=== PATIENT | male | born 1990 | race Caucasian/White ===

== ENCOUNTER 2018-09-09 15:43 | Emergency (ER) | payer OTHER ==
[2018-09-09] MEDS ORDERED: KETOROLAC 60 MG/2 ML VIAL IM STA (16:24)
[2018-09-09] MEDS ORDERED: DEXAMETHASONE 10 MG/ML VIAL PO STA (16:24)
[2018-09-09] MEDS ORDERED: diazePAM 5 MG TABLET PO STA (16:24)
--- NOTE | 2018-09-09 16:30 | ED Physician Documentation ---
PD HPI BACK PAIN - Stated complaint Stated Complaint: BACK PX - Chief complaint Chief Complaint: Back Pain - History obtained from History obtained from: Patient - History of Present Illness Timing - onset: How many hours ago (1) Timing - details: Still present Location: Lower Quality: Pain, Spasm Worsened by: Movement Contributing factors: Other (Working out in gym.) Similar symptoms before: Diagnosis (Similar episode about four years ago.) - Additional information Additional information: The patient is a 27-year-old [employer] [place] male who presents with bilateral lower back pain/spasms that started about 1 hour prior to arrival while working out in the gym. He denies fever, urinary incontinence, numbness or weakness. His pain is worse with movement. He reports history of similar symptoms about 4 years ago, and has had less severe episodes intermittently since that time. Review of Systems Constitutional: denies: Fever GI: denies: Abdominal Pain, Nausea, Vomiting : denies: Dysuria, Incontinent Skin: denies: Rash Musculoskeletal: reports: Back pain. denies: Extremity pain Neurologic: denies: Focal weakness, Numbness PD PAST MEDICAL HISTORY - Past Medical History Past Medical History: Yes Cardiovascular: None Respiratory: None Neuro: None Endocrine/Autoimmune: None GI: None : None HEENT: None Psych: None Musculoskeletal: Chronic back pain, Other Derm: None - Past Surgical History Past Surgical History: Yes - Present Medications Home Medications: Ambulatory Orders Medication Instructions Recorded Confirmed Cyclobenzaprine [Flexeril] 10 mg PO TID PRN #20 tablet 09/09/18 Hydrocodone/Acetaminophen 1 - 2 each PO Q6H PRN #14 tablet 09/09/18 [Hydrocodon-Acetaminophen 5-325] Ibuprofen [Motrin] 800 mg PO Q8H PRN #30 tablet 09/09/18 Sertraline [Zoloft] 50 mg PO DAILY 09/09/18 09/09/18 buPROPion [Wellbutrin Xl] 150 mg PO DAILY 09/09/18 09/09/18 predniSONE [Prednisone] 40 mg PO DAILY #10 tablet 09/09/18 - Allergies Allergies/Adverse Reactions: Allergies Allergy/AdvReac Type Severity Reaction Status Date / Time No Known Drug Allergies Allergy Verified 09/09/18 15:53 - Social History Does the pt smoke?: No Smoking Status: Never smoker Does the pt drink ETOH?: Yes ETOH Use: Beer Does the pt have substance abuse?: No - Immunizations Immunizations are current?: Yes - POLST Patient has POLST: No PD ED PE NORMAL - Vitals Vital signs reviewed: Yes (Normal) - General General: Alert and oriented X 3, Well developed/nourished, Other (Large stature.) - HEENT HEENT: Atraumatic - Respiratory Respiratory: No respiratory distress - Back Back: No spinal TTP, Other (Tenderness to palpation in the paralumbar musculature bilaterally, with spasms.) - Derm Derm: No rash - Extremities Extremities: No edema, No calf tenderness / cord, Other (Straight leg raise test is negative bilaterally.) - Neuro Neuro: Alert and oriented X 3, No motor deficit, No sensory deficit, Other (Deep tendon reflexes are 2+ and equal bilaterally at the patellar and Achilles tendons.) Results - Vitals Vitals: Vital Signs - 24 hr 09/09/18 09/09/18 15:50 19:01 Temperature 36.3 C L 36.3 C L Heart Rate 104 H 79 Respiratory 20 16 Rate Blood Pressure 119/74 120/71 O2 Saturation 97 96 Oxygen O2 Source Room air PD MEDICAL DECISION MAKING - ED course Complexity details: re-evaluated patient, considered differential, d/w patient, d/w family ED course: The patient's presentation is significant for acute lumbar strain with spasms. His presentation does not suggest epidural abscess, spinal stenosis, or cauda equina syndrome. Treatment in the emergency department included administration of ketorolac 60 mg IM, dexamethasone 10 mg orally, and diazepam 5 mg orally. He continued to have persistent pain, for which hydromorphone 1 mg is administered IM. His symptoms slightly improved with the above treatment. He is being discharged with prescriptions for ibuprofen, Flexeril, prednidone, and Vicodin, 14 tablets. I discussed with him and his the expected course of injury, symptomatic treatment and outpatient follow-up, as well as potentially worrisome signs or symptoms that should prompt reevaluation in the emergency department. Departure - Departure Disposition: 01 Home, Self Care Clinical Impression: Back pain Qualifiers: Back pain location: low back pain Chronicity: acute Back pain laterality: bilateral Sciatica presence: without sciatica Qualified Code(s): M54.5 - Low back pain Condition: Stable Instructions: ED Low Back Pain Injury Follow-Up: ROSA GALLEGOS [Primary Care Provider] - Prescriptions: Cyclobenzaprine [Flexeril] 10 mg PO TID PRN #20 tablet PRN Reason: Spasms Hydrocodone/Acetaminophen [Hydrocodon-Acetaminophen 5-325] 1 - 2 each PO Q6H PRN #14 tablet PRN Reason: pain Ibuprofen [Motrin] 800 mg PO Q8H PRN #30 tablet PRN Reason: PAIN &/OR FEVER predniSONE [Prednisone] 40 mg PO DAILY #10 tablet Comments: Apply ice pack to your lower back intermittently for the next 3 or 4 days. You can use ibuprofen, up to 800 mg 3 times daily for its anti-inflammatory effect. You can use Flexeril as prescribed if needed for muscle spasms. Take prednisone daily as prescribed. Let pain be your guide to activity level. Return to the emergency department if you develop increasing pain, numbness or weakness, or otherwise worsening symptoms. Forms: Activity restrictions Discharge Date/Time: 09/09/18 19:16
[2018-09-09] MEDS ORDERED: CHERRY SYRUP 10 ML UDC PO ONE (16:31)
[2018-09-09] MEDS ORDERED: HYDROmorphone 1 MG/ML CARPUJECT IM STA (17:34)
[2018-09-09 19:03] VITALS: BP 120/71
== END 2018-09-09 19:16 | disposition home or self-care (01) ==
LOC: ED 15:43
DX: M54.5 Low back pain (principal); M62.838 Other muscle spasm; G89.29 Other chronic pain
CPT/HCPCS: 96372; 99283; A9270; J1170

== ENCOUNTER 2018-09-13 20:52 | Emergency (ER) | payer OTHER ==
--- NOTE | 2018-09-13 21:23 | ED Physician Documentation ---
PD HPI BACK PAIN - Stated complaint Stated Complaint: BACK PX - Chief complaint Chief Complaint: Back Pain - History obtained from History obtained from: Patient - History of Present Illness Timing - onset: How many days ago (5) Timing - details: Abrupt onset Severity Comments: moderate Location: Lower Quality: Pain, Spasm. No: Tearing, Aching, Throbbing Associated symptoms: No: Fever, Weakness, Numbness, Incontinent of urine, Unable to urinate, Hematuria, Incontinent of stool Improves with: Rest, Position. No: Ice Worsened by: Movement, Lifting, Twisting, Palpation Contributing factors: Lifting, Twisting. No: Anticoagulated, Cancer, IVDA, Out of meds Similar symptoms before: No diagnosis Recently seen: Emergency Dept Review of Systems Constitutional: denies: Fever, Chills Eyes: denies: Discharge Ears: denies: Ear pain Nose: denies: Congestion Throat: denies: Sore throat Cardiac: denies: Chest pain / pressure Respiratory: denies: Cough GI: denies: Abdominal Pain Skin: denies: Rash Musculoskeletal: reports: Back pain Neurologic: denies: Generalized weakness Immunocompromised: denies: Chemotherapy PD PAST MEDICAL HISTORY - Past Medical History Past Medical History: Yes Cardiovascular: None Respiratory: None Neuro: None Endocrine/Autoimmune: None GI: None : None HEENT: None Psych: None Musculoskeletal: Chronic back pain, Other Derm: None - Past Surgical History Past Surgical History: Yes - Present Medications Home Medications: Ambulatory Orders Medication Instructions Recorded Confirmed Cyclobenzaprine [Flexeril] 10 mg PO TID PRN #20 tablet 09/09/18 Hydrocodone/Acetaminophen 1 - 2 each PO Q6H PRN #14 tablet 09/09/18 [Hydrocodon-Acetaminophen 5-325] Ibuprofen [Motrin] 800 mg PO Q8H PRN #30 tablet 09/09/18 Sertraline [Zoloft] 50 mg PO DAILY 09/09/18 09/09/18 buPROPion [Wellbutrin Xl] 150 mg PO DAILY 09/09/18 09/09/18 predniSONE [Prednisone] 40 mg PO DAILY #10 tablet 09/09/18 - Allergies Allergies/Adverse Reactions: Allergies Allergy/AdvReac Type Severity Reaction Status Date / Time No Known Drug Allergies Allergy Verified 09/09/18 15:53 - Social History Does the pt smoke?: No Smoking Status: Never smoker Does the pt drink ETOH?: Yes Does the pt have substance abuse?: No - Immunizations Immunizations are current?: Yes - POLST Patient has POLST: No PD ED PE NORMAL - General General: Alert and oriented X 3, No acute distress - HEENT HEENT: Atraumatic, PERRL, EOMI, Ears normal - Neck Neck: Supple, no meningeal sign - Cardiac Cardiac: RRR, Strong equal pulses - Respiratory Respiratory: No respiratory distress - Abdomen Abdomen: Soft, Non tender - Back Back: No CVA TTP. No: No spinal TTP (The patient has tenderness to palpation in the left lower paraspinal region around L5-S1. There is no crepitus, no bogginess, no skin changes or swelling) - Derm Derm: Normal color - Extremities Extremities: No deformity - Neuro Neuro: Alert and oriented X 3, No motor deficit, No sensory deficit, Normal speech, Other (2/4 Patellar reflex) - Psych Psych: Normal mood Results - Vitals Vitals: Vital Signs - 24 hr 09/13/18 21:05 Temperature 36.8 C Heart Rate 101 H Respiratory 15 Rate Blood Pressure 150/99 H O2 Saturation 97 Oxygen O2 Source Room air - Labs Labs: Laboratory Tests 09/13/18 21:32 Urine Color STRAW Urine Clarity CLEAR Urine pH 5.5 Ur Specific [place] 1.025 Urine Protein NEGATIVE Urine Glucose (UA) NEGATIVE Urine Ketones NEGATIVE Urine Occult Blood NEGATIVE Urine Nitrite NEGATIVE Urine Bilirubin NEGATIVE Urine Urobilinogen 1 (NORMAL) Ur Leukocyte Esterase NEGATIVE Ur Microscopic Review NOT INDICATED Urine Culture Comments NOT INDICATED - Rads (name of study) XR lumbar Radiology: Final report received, See rad report PD MEDICAL DECISION MAKING - ED course ED course: No findings to suggest acute cauda equina or epidural abscess or kidney stone and currently the patient does not appear to require emergent MRI or further workup in the emergency department. The patient appears appropriate for ongoing outpatient management. I discussed warning signs and recommended returning for any worsening or any concerns. Departure - Departure Clinical Impression: Back pain Qualifiers: Back pain location: low back pain Chronicity: acute Back pain laterality: unspecified Sciatica presence: unspecified whether sciatica present Qualified Code(s): M54.5 - Low back pain Condition: Good Instructions: Lumbar Flexion, Lumbar Stretch, ED Low Back Pain Injury, ED Sprain Strain Lumbar Follow-Up: ROSA GALLEGOS [Primary Care Provider] - Within 3 Days (Please ask your primary care to arrange for outpatient physical therapy. If your symptoms are not improving you may require an outpatient MRI) Comments: Please return to the emergency department for worsening symptoms or any concerns
[2018-09-13] MEDS ORDERED: diazePAM 5 MG TABLET PO STA (21:31)
[2018-09-13] MEDS ORDERED: NAPROXEN 250 MG TABLET PO STA (21:31)
[2018-09-13 21:47] LABS: BILIRUBIN,URINE NEGATIVE (NEGATIVE); GLUCOSE, URINE (UA) NEGATIVE (NEGATIVE); KETONES,URINE (UA) NEGATIVE (NEGATIVE); LEUKOCYTE ESTERASE, URINE NEGATIVE (NEGATIVE); NITRITE,URINE NEGATIVE (NEGATIVE); OCCULT BLOOD,URINE NEGATIVE (NEGATIVE); PH,URINE 5.5 PH (5.0-7.5); PROTEIN,URINE NEGATIVE (NEGATIVE); UROBILINOGEN,URINE 1 (NORMAL) E.U./dL (NORMAL)
[2018-09-13 21:49] LABS: CLARITY,URINE CLEAR (CLEAR)
--- NOTE | 2018-09-13 22:12 | XRAY Report ---
Reason: back pain Procedure Date: 09/13/2018 Accession Number: [id number] / [id number] Procedure: XR - Lumbar Spine 2 View CPT Code: FULL RESULT: EXAM: LUMBOSACRAL SPINE RADIOGRAPHY. EXAM DATE: 09/13/2018 09:47 PM. CLINICAL HISTORY: Back pain. Right-sided posterior lumbar spine pain for 5 days. COMPARISONS: None. TECHNIQUE: 3 views. FINDINGS: Alignment: Normal. No spondylolisthesis or scoliosis. Bones: Five [id number] lumbar vertebral bodies are present. No fractures or bone lesions. Disks: Normal. Disk heights are maintained. Facets: No degenerative changes. Sacroiliac Joints: Unremarkable. Soft Tissues: Normal. The visualized bowel gas pattern is normal. IMPRESSION: Normal lumbar spine radiography. [facility]
[2018-09-13 22:26] VITALS: BP 121/77
== END 2018-09-13 22:26 | disposition home or self-care (01) ==
LOC: ED 20:52
DX: M54.5 Low back pain (principal); M62.830 Muscle spasm of back
CPT/HCPCS: 72100; 81003; 99283; A9270; 81001; 87086